=== PATIENT | male | born 1960 | race Two or more races ===

== ENCOUNTER → 2019-07-04 | Day surgery (SDC) | payer OTHER ==
[~2019-07-04] MED LIST: ALLOPURINOL300 MG; AMBIEN10 MG; ATORVASTATIN CA10 MG; COZAAR100 MG; MIRALAX17 GM PO; NEURONTIN300 MG PO; TYLENOL ARTHRI650 MG PO; ULTRAM50 MG PO
== END | disposition home or self-care (01) ==
LOC: ADM 06-25 14:45 → CIR.AMB 10:41
DX: K40.90 Unilateral inguinal hernia, without obstruction or gangrene, not specified as recurrent (principal); K42.9 Umbilical hernia without obstruction or gangrene